=== PATIENT | male | born 1995 | race Caucasian/White ===

== ENCOUNTER 2021-01-16 07:14 | Outpatient (REF) | payer BC, SELFPAY ==
[2021-01-16 07:57] LABS: COVID-19 Test Negative (Negative); IDNOW Serial# 9DD0AD1C
== END 2021-01-16 07:15 | disposition home or self-care (01) ==
LOC: HO.LAB 07:14
PROVIDERS: PCP Pediatrics; Visit Provider Internal Medicine
DX: Z20.822 Contact with and (suspected) exposure to COVID-19 (principal)
CPT/HCPCS: 36415; 87635

== ENCOUNTER 2021-02-21 22:19 | Outpatient (REF) | payer BC, SELFPAY ==
[2021-02-21 22:48] LABS: COVID-19 Test Negative (Negative)
== END 2021-02-21 22:20 | disposition home or self-care (01) ==
LOC: HO.LAB 22:19
PROVIDERS: Referring Provider Internal Medicine; Visit Provider Internal Medicine
DX: Z20.822 Contact with and (suspected) exposure to COVID-19 (principal)
CPT/HCPCS: 36415; 87635

== ENCOUNTER 2021-02-24 16:04 | Outpatient (REF) | payer BC, SELFPAY ==
[2021-02-24 16:30] LABS: COVID-19 Test Positive (Negative); IDNOW Serial# 9DD0AD1C
== END 2021-02-24 16:05 | disposition home or self-care (01) ==
LOC: HO.LAB 16:04
PROVIDERS: Visit Provider Internal Medicine
DX: Z20.822 Contact with and (suspected) exposure to COVID-19 (principal)
CPT/HCPCS: 87635